=== PATIENT | male | born 1980 | race Caucasian/White ===

== ENCOUNTER 2021-09-25 22:49 | Emergency (ER) | payer MEDICAID ==
[~2021-09-25] VITALS: Ht 185.4 cm; Wt 107.0 kg
[2021-09-26 00:10] LABS: BASOPHILS % 0.2 % (0.0-2.0); HEMATOCRIT. 44.5 % (42.0-52.0); HEMOGLOBIN. 15.3 g/dL (14.0-18.0); LYMPHOCYTES % 7.2 % (20.0-50.0); MEAN CORPUSCULAR HEMOGLOBIN 29.1 pg (28.0-32.0); MEAN CORPUSCULAR VOLUME 84.6 fL (80.0-94.0); MEAN PLATELET VOLUME 9.4 fl (7.4-10.4); MONOCYTES % 6.7 % (2.0-8.0); NEUTROPHILS % 85.9 % (40.0-76.0); PLATELET 212 x1000/uL (130-400); RED BLOOD CELL COUNT 5.27 mill/uL (4.7-6.1); RED CELL DISTRIBUTION WIDTH 13.4 % (11.6-14.6)
[2021-09-26 00:21] LABS: CHLORIDE 100 mEq/L (98-107)
[2021-09-26 00:25] LABS: ETHANOL BLOOD < 10 mg/dL
[2021-09-26 01:34] LABS: CLARITY URINE CLEAR (CLEAR); COLOR URINE YELLOW (YELLOW); KETONES URINE NEGATIVE (NEGATIVE); LEUKOCYTE ESTERASE URINE NEGATIVE (NEGATIVE); NITRITE URINE NEGATIVE (NEGATIVE); OCCULT BLOOD URINE NEGATIVE (NEGATIVE); PROTEIN URINE NEGATIVE (NEGATIVE); SPECIFIC GRAVITY URINE 1.007 (1.005-1.030); UROBILINOGEN URINE 0.2 E.U./dL (0.2-1.0)
[2021-09-26 01:43] LABS: *AMPHETAMINES SCREEN URINE NEGATIVE (NEGATIVE); *BARBITURATES SCREEN URINE NEGATIVE (NEGATIVE)
[2021-09-26 01:45] LABS: *BENZODIAZEPINES SCREEN URINE NEGATIVE (NEGATIVE); *COCAINE SCREEN URINE NEGATIVE (NEGATIVE); CANNABINOID URINE SCREEN PRESUMTIVE POSITIVE (NEGATIVE); METHADONE URINE SCREEN NEGATIVE (NEGATIVE); OPIATES URINE SCREEN NEGATIVE (NEGATIVE); PHENCYCLIDINE URINE SCREEN NEGATIVE (NEGATIVE)
[2021-09-26] MEDS ORDERED: QUETIAPINE FUMARATE 50MG TABLET PO ONE (02:15)
[2021-09-26] MEDS ORDERED: LORAZEPAM 1MG TABLET PO PRN (16:30)
[2021-09-26] MEDS ORDERED: LORAZEPAM 1MG TABLET PO ONE ×2 (21:00)
[2021-09-26] MEDS ORDERED: QUETIAPINE FUMARATE 50MG TABLET PO SCH (21:00)
[2021-09-27] MEDS ORDERED: LITH300C3 MT (09:07)
[2021-09-27] MEDS ORDERED: QUET200T MT (09:07)
[2021-09-27 09:44] VITALS: BP 125/64
== END 2021-09-27 09:46 | disposition home or self-care (01) ==
LOC: ER 22:49
DX: R45.851 Suicidal ideations (principal); F20.9 Schizophrenia, unspecified; R45.1 Restlessness and agitation; I49.8 Other specified cardiac arrhythmias
CPT/HCPCS: 36415; 80053; 80307; 80320; 80329; 85025; 93005; 99285; G0480